=== PATIENT | female | born 1960 | race African-American/Black ===

== ENCOUNTER 2017-05-07 16:45 | Emergency (ER) | payer MEDICARE, OTHER ==
[2017-05-07 18:24] LABS: ADD MAN DIFF? NO
[2017-05-07 18:27] LABS: BASO # 0.1 x10^3/uL (0.0-0.2); BASO % 1 % (0-3); EOS # 0.1 x10^3/uL (0.0-0.7); EOS % 2 % (0-3); HEMATOCRIT 31.8 % (36.0-47.0); HEMOGLOBIN 10.6 g/dL (12.0-15.5); LYMPH # 3.3 x10^3/uL (1.0-4.8); LYMPH % 44 % (24-48); MEAN CORPUSCULAR HEMOGLOBIN 29 pg (25-35); MEAN CORPUSCULAR HGB CONC 34 g/dL (31-37); MEAN CORPUSCULAR VOLUME 87 fL (79-100); MONO # 0.6 x10^3/uL (0.0-1.1); MONO % 8 % (0-9); NEUT # 3.4 x10^3uL (1.8-7.7); NEUT % 45 % (31-73); PLATELET COUNT 291 x10^3/uL (140-400); RED BLOOD COUNT 3.64 x10^6/uL (3.50-5.40); RED CELL DISTRIBUTION WIDTH 13.9 % (11.5-14.5); WHITE BLOOD COUNT 7.6 x10^3/uL (4.0-11.0)
[2017-05-07 18:29] LABS: BILIRUBIN,URINE NEGATIVE (NEG); CLARITY,URINE CLEAR; COLOR,URINE YELLOW; GLUCOSE,URINE NEGATIVE (NEG); NITRITE,URINE POSITIVE (NEG); PH,URINE 6.5; PROTEIN,URINE NEGATIVE (NEG-TRACE); UROBILINOGEN,URINE 0.2 mg/dL (0.2 mg/dL)
[2017-05-07] MEDS: fentaNYL PF VIAL 100 MCG/2 ML VIAL IM ×2 (18:30)
[2017-05-07] MEDS: ONDANSETRON ODT 4 MG TAB.RAPDIS. PO ×2 (18:30)
[2017-05-07 18:33] LABS: BACTERIA,URINE MANY /HPF (0-FEW); RBC,URINE OCC /HPF (0-2); SQUAMOUS EPITHELIAL CELL,UR MANY /LPF
[2017-05-07 18:39] LABS: ANION GAP 8 (6-14); BLOOD UREA NITROGEN 14 mg/dL (7-20); BUN/CREATININE RATIO 14 (6-20); CALCIUM 8.6 mg/dL (8.5-10.1); CARBON DIOXIDE 29 mmol/L (21-32); CHLORIDE 104 mmol/L (98-107); GFR 68.9; GLUCOSE 104 mg/dL (70-99); POTASSIUM 3.5 mmol/L (3.5-5.1); SODIUM 141 mmol/L (136-145)
[2017-05-07 18:45] LABS: ALBUMIN 3.5 g/dL (3.4-5.0); ALK PHOS 110 U/L (46-116); ALT (SGPT) 27 U/L (14-59); AST (SGOT) 23 U/L (15-37); TOTAL BILIRUBIN 0.2 mg/dL (0.2-1.0); TOTAL PROTEIN 7.1 g/dL (6.4-8.2)
[2017-05-07 18:48] LABS: TROPONINI < 0.017 ng/mL (0.000-0.055)
== END 2017-05-07 20:00 | disposition home or self-care (01) ==
LOC: ER 16:45
DX: S42.293A Other displaced fracture of upper end of unspecified humerus, initial encounter for closed fracture (principal); R42 Dizziness and giddiness; W01.0XXA Fall on same level from slipping, tripping and stumbling without subsequent striking against object, initial encounter; Y93.89 Activity, other specified; Y99.8 Other external cause status; Y92.89 Other specified places as the place of occurrence of the external cause
CPT/HCPCS: 36415; 73030; 73060; 80053; 81001; 84484; 85025; 87086; 87186; 93005; 96372; 99285-25; J3010; Q0162

== ENCOUNTER → 2020-12-14 | Outpatient (CLI) | payer OTHER ==
[2017-05-07 18:30] VITALS: BP 174/95
[~2020-12-14] MED LIST: ATEN25TA PO; CELE200C PO; FLUT9.9S NS; GABA300C18 PO; HYDR-3164 PO; IBUP-1007 PO; MELO15TA23 PO; OMEG-152 PO; OXYC1TAB15 PO; QUET200T4 PO; VENL75TA PO
--- NOTE | 2020-12-14 15:19 | RAD ---
EXAM: Bilateral digital screening mammogram with tomosynthesis. HISTORY: 60-year-old female presents for screening mammography. TECHNIQUE: Full-field digital craniocaudal and mediolateral oblique 2D and 3D tomosynthesis images of both breasts are obtained for evaluation. Computer aided detection was applied. COMPARISON: 07/11/2014 BREAST PARENCHYMAL DENSITY: Level B - Scattered fibroglandular densities. FINDINGS: There is a small nodular density within the 8:30 position of the left breast at mid depth w hich may conspicuous compared to the prior study due to differences in technique. There are areas of asymmetry which are stable in appearance. There is no suspicious calcification or architectural disto rtion. IMPRESSION: BI-RADS Category 0: Incomplete Additional imaging needed. RECOMMENDATION: Further evaluation with a left breast sonogram is recommended to assess nodularity at the 8:30 position at mid depth. If your mammogram demonstrates that you have dense breast tissue, which could hide abnormalities, and if you have other risk factors for breast cancer that have been identified, you might benefit from s upplemental screening tests that may be suggested by your ordering physician. Dense breast tissue, i n and of itself, is a relatively common condition. This information is not provided to cause undue c oncern, but rather to raise your awareness and to promote discussion with your physician regarding th e presence of other risk factors, in addition to dense breast tissue. A report of your mammography re sults will be sent to you and your physician. You should contact your physician if you have any ques tions or concerns regarding this report. Mammography is a sensitive method for finding small breast cancers, but it does not detect them all a nd is not a substitute for careful clinical examination. A negative mammogram does not negate a clin ically suspicious finding and should not result in delay in biopsying a clinically suspicious abnorma lity. PQRS compliance statement - Patient information was entered into a reminder system with a target due date for the next mammogram. "Our facility is accredited by the [employer] Mammography [employer]." Electronically signed by: Becki Oscar MD (12/14/2020 3:16 PM) [id number]
== END ==
LOC: MAMMO 13:50
PROVIDERS: ATTEND Family Medicine
DX: Z12.31 Encounter for screening mammogram for malignant neoplasm of breast (principal)
CPT/HCPCS: 77063; 77067

== ENCOUNTER 2020-12-21 06:14 | Day surgery (SDC) | payer OTHER ==
[~2020-12-21] VITALS: Ht 162.6 cm; Wt 69.0 kg
[~2020-12-21 06:14] MED LIST changes: +HYDROmorphone 2 MG/ML VIAL IVP PRN; +IV RINGERS,LACTATED 1000ML 1,000 ML IV SCH; +MORPHINE SULFATE 2 MG/ML INJ. IVP PRN; -OXYC1TAB15 PO; +PROCHLORPERAZINE 10 MG/2 ML VIAL. IVP PRN; +ceFAZolin SODIUM IV Push 1 GM VIAL. IVP ONE; +fentaNYL PF VIAL 100 MCG/2 ML VIAL IVP PRN
[2020-12-21 06:40] VITALS: BP 123/72
[2020-12-21] MEDS ORDERED: GELATIN SPONGE SIZE 100. ONE (07:10)
[2020-12-21] MEDS ORDERED: BUPIVACAINE-EPI 0.5%-1:200000 MPF 30 ML VIAL. ONE (07:10)
[2020-12-21] MEDS ORDERED: ROCURONIUM 50 MG/5 ML VIAL. ONE (07:37)
[2020-12-21] MEDS ORDERED: NEOMY/BACITR/POLYMYXIN OINT PACKET. TP ONE ×6 (07:59→08:15)
[2020-12-21] MEDS ORDERED: ceFAZolin SODIUM IV Push 1 GM VIAL. IVP PRN (08:00)
[2020-12-21] MEDS ORDERED: fentaNYL PF VIAL 100 MCG/2 ML VIAL ONE (08:07)
[2020-12-21] MEDS ORDERED: POVIDONE-IODINE 10% TOPICAL OINTMENT 28GM TUBE. TP ONE (08:07)
[2020-12-21] MEDS ORDERED: GLYCOPYRROLATE 1 MG/5 ML VIAL. ONE (08:11)
[2020-12-21] MEDS ORDERED: NEOSTIGMINE METHYLSULFATE 5 MG/5 ML SYRINGE. ONE (08:12)
--- NOTE | 2020-12-21 08:19 | PDOC4 ---
Operative Note Operative Note Operative Note: Preoperative Diagnosis: Hemorrhoids Postoperative Diagnosis: Same Procedure: Hemorrhoidectomy Surgeon: [employer]ident Response Specialist: Penelope BENITEZ Anesthesia: General EBL: 10 mL Specimen: Hemorrhoids to pathology Drains: None Complications: None Indication: The patient is a 60-year-old female who is referred due to symptomatic hemorrhoids. Examination shows prominent primarily external hemorrhoids. She requests excision due to ongoing problems. The risks of surgery were discussed which include bleeding, infection, recurrence, pain, incontinence , anal stenosis, potential need for additional surgery procedure. She understands and would like to proceed Description: The patient was taken to the operating room and placed supine on the operating table. General anesthesia was performed. She was then placed in prone jackknife. The perianal skin was prepped with Betadine and draped in a standard surgical manner. Examination identified prominent external hemorrhoids with a minimal internal component. No other anal lesions were identified. Using the LigaSure device each of the external hemorrhoids was excised at its base. A small amount of redundant anoderm was excised as well and each specimen was sent to pathology labeled as hemorrhoids. Following excision hemostasis was good. A Gelfoam pack was placed in the anal canal to assist with future hemostasis. A sterile dressing was then applied. The patient tolerated the procedure well and was sent to the recovery room in stable condition. At the end of the case all counts were correct JOYCE PRESCOTT MD Dec 21, 2020 08:19
[2020-12-21] MEDS ORDERED: OXYC1TAB15 PO (08:21)
--- NOTE | 2020-12-21 08:23 | DISCH ---
DISCHARGE INSTRUCTIONS Condition on Discharge Condition on Discharge: Stable Activity After Discharge Activity Instructions for Disc: Activity as tolerated, Other, see below Driving Instructions after Dis: Other, see below (no driving while taking pain meds) Wound Incision Care Wound/Incision Care: Other, see below (sitz baths BID) Follow-Up Follow up with: Dr Prescott in office in 2 weeks, call for appt [phone] JOYCE PRESCOTT MD Dec 21, 2020 08:23
[2020-12-21 08:51] VITALS: BP 101/65
[2020-12-21] MEDS ORDERED: HYDROcodone/APAP 5/325MG 1 TAB TABLET PO ONE (09:00)
[2020-12-21] MEDS ORDERED: SUGAMMADEX SODIUM 200 MG/2 ML VIAL. IVP ONE (09:00)
[2020-12-21] MEDS ORDERED: HYDROcodone/APAP 5/325MG 1 TAB TABLET ONE (09:02)
--- NOTE | 2020-12-22 15:10 | PATHOLOGY ---
[facility] Accession Number: [id number] . 01 Material submitted: . hemorrhoids - HEMORRHOIDS . 01 Clinical history: . HEMORRHOIDECTOMY . 02 Diagnosis: Segments of skin and anorectal mucosa and underlying soft tissue, hemorrhoidectomy: - Hemorrhoids. . (JPM:mm; 12/22/2020) [facility] 12/22/2020 1442 Local . 02 Comment: There is no evidence of malignancy. . 02 Electronically signed: . Chun Fuller MD, Pathologist NPI- [id number] . 01 Gross description: . Fixative: Formalin Labeled: Hemorrhoids Specimen received: 3, irregular skin and soft tissue fragments. The epidermal surface appears byrd-brown, focally hemorrhagic, focally wrinkled and hairbearing Dimensions: Range from 1.0-3.4 cm Cut surface: Byrd and rubbery with focally dilated vessels Clam Sorter tissue in cassette A1. (MRF; 12/21/2020) MFE/MFE 12/21/2020 1538 Local . 02 Pathologist provided ICD-10: K64.9 . 02 CPT . 044188 Specimen Comment: A courtesy copy of this report has been sent to [phone] Specimen Comment: [phone] Specimen Comment: Report sent to / DR COON Performed at: 01 [facility] [address], [place] [id number] MD Mahin Bolden MD Phone: [phone] Performed at: 02 [facility] [address] [place], [place] [id number] MD Chun Fuller MD Phone: [phone]
== END 2020-12-21 09:25 | disposition home or self-care (01) ==
LOC: SURG 06:14
PROVIDERS: ATTEND Surgery
DX: K64.4 Residual hemorrhoidal skin tags (principal); I10 Essential (primary) hypertension; F41.9 Anxiety disorder, unspecified; F32.9 Major depressive disorder, single episode, unspecified; M19.90 Unspecified osteoarthritis, unspecified site; F17.210 Nicotine dependence, cigarettes, uncomplicated; Z90.710 Acquired absence of both cervix and uterus; Z98.890 Other specified postprocedural states; Z90.12 Acquired absence of left breast and nipple
CPT/HCPCS: 46250; A4930; A6253; J0690; J2710; J3010; J3490; 88304

== ENCOUNTER → 2020-12-30 | Outpatient (CLI) | payer OTHER ==
[2020-12-21 08:51] VITALS: BP 101/65
[~2020-12-30] MED LIST changes: -HYDROmorphone 2 MG/ML VIAL IVP PRN; -IV RINGERS,LACTATED 1000ML 1,000 ML IV SCH; -MORPHINE SULFATE 2 MG/ML INJ. IVP PRN; +OXYC1TAB15 PO; -PROCHLORPERAZINE 10 MG/2 ML VIAL. IVP PRN; -ceFAZolin SODIUM IV Push 1 GM VIAL. IVP ONE; -fentaNYL PF VIAL 100 MCG/2 ML VIAL IVP PRN
--- NOTE | 2020-12-30 15:10 | RAD ---
EXAM: US BREAST LT 12/30/2020 1:53 PM CLINICAL INDICATION: Callback from left breast mammogram 12/14/2020 4 nodular focal asymmetry at 8:30 middle depth. COMPARISON: Screening mammogram 12/14/2020 TECHNIQUE: Grayscale and color Doppler ultrasound of the left breast was performed in the area of co ncern FINDINGS: Questionable small lymph node in the area of concern. There is no cyst or mass identified. No axillary lymphadenopathy. IMPRESSION: Possible small lymph node in the area of concern. Recommend 6 month follow-up mammogram and ultrasound to ensure stability. BI-RADS category 3: Probably benign. Findings and recommendations were discussed by Dr. Hassan with the patient at the time of exam. Electronically signed by: Shanna Hassan MD (12/30/2020 3:08 PM) [id number]
== END ==
LOC: US 13:50
PROVIDERS: ATTEND Family Medicine
DX: R92.8 Other abnormal and inconclusive findings on diagnostic imaging of breast (principal)
CPT/HCPCS: 76641

== ENCOUNTER → 2021-02-10 | Day surgery (SDC) | payer OTHER ==
[~2021-02-10] VITALS: Ht 162.6 cm; Wt 67.7 kg
[~2021-02-10] MED LIST changes: +HYDROmorphone 2 MG/ML VIAL IVP PRN; +IV RINGERS,LACTATED 1000ML 1,000 ML IV SCH; +LIDOCAINE 2% PF 5 ML VIAL. ONE; +MORPHINE SULFATE 2 MG/ML INJ. IVP PRN; +PROCHLORPERAZINE 10 MG/2 ML VIAL. IVP PRN; +PROPOFOL 10 MG/ML (20ML) VIAL. IV ONE; +fentaNYL PF VIAL 100 MCG/2 ML VIAL IVP PRN
[2021-02-10 07:19] VITALS: BP 100/71
[2021-02-10 08:45] VITALS: BP 132/80
--- NOTE | 2021-02-10 10:06 | HP ---
DATE OF SERVICE: 02/10/2021 ADMIT DATE: 02/10/2021 UPDATED HISTORY AND PHYSICAL REFERRING PHYSICIAN: Sherry Valentin DO REASON: History of colonic polyps. HISTORY OF PRESENT ILLNESS: A 60-year-old -[place] female whose past medical history is significant for colonic polyps, depression, fibromyalgia, anemia as well as hypertension. She is seen for interval exam. Bowel habits are regular without diarrhea. There has been no melena or hematochezia. Weight and appetite are stable. There has been no melena or additional complications at this time. PAST MEDICAL HISTORY: Significant for colonic polyps, depression, fibromyalgia, anemia, arthritis, hypertension. ALLERGIES: None. MEDICATIONS: Include atenolol, Celebrex, Flonase, omega 3, oxycodone, Seroquel and venlafaxine. FAMILY HISTORY: Significant for colon cancer in an uncle and diabetes in sibling. Breast cancer in mother. Colon polyps in grandmother. Hypertension in multiple family members. PAST SURGICAL HISTORY: Hysterectomy, tonsillectomy, breast surgery. REVIEW OF SYSTEMS: Per records. PHYSICAL EXAMINATION: GENERAL: Reveals a well-nourished, well-developed -[place] female. VITAL SIGNS: Temp is 97.7, pulse 80, respiratory rate 18. LUNGS: Clear. CARDIOVASCULAR: Reveals an S1, S2 without S3, S4 or appreciable murmur. ABDOMEN: Reveals a soft abdomen, normal bowel sounds without appreciable hepatosplenomegaly. EXTREMITIES: Reveals no cyanosis, clubbing or edema. IMPRESSION AND PLAN: History of colonic polyps. Surveillance exam is recommended at that time. Risks, benefits of procedure including risk of hemorrhage and perforation with operation were discussed. The patient is willing to proceed at this time. COURTNEY DR: Sharda TID: [id number]
--- NOTE | 2021-02-11 18:06 | PATHOLOGY ---
[facility] Accession Number: [id number] . 01 Material submitted: . sigmoid colon - SIGMOID POLYP BIOPSY . 01 Clinical history: . HX POLYPS COLONOSCOPY . 02 Diagnosis: Colon biopsies, sigmoid colon polyps: - Hyperplastic polyps. . ([facility]:mm; 02/11/2021) M 02/11/2021 1600 Local . 02 Comment: There are no adenomatous changes or evidence of malignancy. . ([facility]:mml; 02/11/2021) . 02 Electronically signed: . Chun Fuller MD, Pathologist NPI- [id number] . 01 Gross description: . The specimen is submitted in formalin, labeled "Walker, Jana, sigmoid polyp BX". Received are 3 segments of pale byrd tissue ranging in size from 0.3 to 0.5 cm in maximum dimensions. The specimen is submitted entirely in cassette A1. ([facility]; 02/10/2021) NRI/NRI 02/10/2021 1923 Local . 02 Pathologist provided ICD-10: K63.5 . 02 CPT . 261082 Specimen Comment: A courtesy copy of this report has been sent to [phone] Specimen Comment: [phone] Specimen Comment: Report sent to / DR COON Performed at: 01 [facility] [address], [place] [id number] MD Mahin Bolden MD Phone: [phone] Performed at: 02 [facility] [address] [place], [place] [id number] MD Chun Fuller MD Phone: [phone]
== END | disposition home or self-care (01) ==
LOC: ENDOS 06:50
PROVIDERS: ATTEND Internal Medicine Gastroenterology
DX: Z12.11 Encounter for screening for malignant neoplasm of colon (principal); K64.0 First degree hemorrhoids; K63.5 Polyp of colon; K63.89 Other specified diseases of intestine; I10 Essential (primary) hypertension; M19.90 Unspecified osteoarthritis, unspecified site; F41.9 Anxiety disorder, unspecified; F32.9 Major depressive disorder, single episode, unspecified; F17.210 Nicotine dependence, cigarettes, uncomplicated; Z86.010 Personal history of colon polyps; Z79.899 Other long term (current) drug therapy; Z98.890 Other specified postprocedural states; Z90.710 Acquired absence of both cervix and uterus; Z85.3 Personal history of malignant neoplasm of breast; Z72.89 Other problems related to lifestyle; Z80.0 Family history of malignant neoplasm of digestive organs; Z80.3 Family history of malignant neoplasm of breast; Z83.3 Family history of diabetes mellitus; Z82.49 Family history of ischemic heart disease and other diseases of the circulatory system
CPT/HCPCS: 45380; 88305; J2704